=== PATIENT | female | born 1955 | race Caucasian/White ===

== ENCOUNTER → 2024-05-29 09:41 | Outpatient (BNVA) | payer OTHER, MEDICARE, SELFPAY | PROVIDERS: PCP Family Medicine; Visit Provider Family Medicine | DX: I10 Essential (primary) hypertension (principal); R82.90 Unspecified abnormal findings in urine; E05.20 Thyrotoxicosis with toxic multinodular goiter without thyrotoxic crisis or storm; E05.90 Thyrotoxicosis, unspecified without thyrotoxic crisis or storm; E04.2 Nontoxic multinodular goiter; K21.9 Gastro-esophageal reflux disease without esophagitis; R16.1 Splenomegaly, not elsewhere classified; Z85.3 Personal history of malignant neoplasm of breast; M19.90 Unspecified osteoarthritis, unspecified site | CPT/HCPCS: 80053; 80061; 82306; 82607; 83036; 84439; 84443; 84481; 85025; 87086 ==

== ENCOUNTER → 2025-05-24 10:44 | Outpatient (BNVA) | payer MEDICARE, OTHER, SELFPAY | PROVIDERS: PCP Family Medicine; Visit Provider Family Medicine | DX: I10 Essential (primary) hypertension (principal); E78.5 Hyperlipidemia, unspecified; E66.01 Morbid (severe) obesity due to excess calories; Z68.41 Body mass index [BMI] 40.0-44.9, adult; H81.10 Benign paroxysmal vertigo, unspecified ear; K21.00 Gastro-esophageal reflux disease with esophagitis, without bleeding; G43.909 Migraine, unspecified, not intractable, without status migrainosus | CPT/HCPCS: 80053; 80061; 85025 ==